=== PATIENT | female | born 1980 | race Caucasian/White ===

== ENCOUNTER 2017-05-25 12:04 | Observation (INO) | payer MEDICAID, OTHER ==
[~2017-05-25] VITALS: Ht 180.3 cm; Wt 161.0 kg
[2017-05-25 13:42] LABS: BASOPHILS % (AUTO) 0.4 % (0.0-5.0); EOSINOPHILS % (AUTO) 2.5 % (0.0-8.0); HEMATOCRIT 34.1 % (36-48); LYMPHOCYTES % (AUTO) 16.3 % (21.0-51.0); MEAN CORPUSCULAR HEMOGLOBIN 30.6 pg (27.0-33.0); MEAN CORPUSCULAR HGB CONC 36.3 g/dL (32.0-36.0); MEAN CORPUSCULAR VOLUME 84.2 fL (79-99); MONOCYTES % (AUTO) 6.8 % (3.0-13.0); PLATELET COUNT (AUTO) 156 K/uL (130-400); RED BLOOD CELL COUNT(AUTO) 4.04 MIL/uL (4.00-5.50); RED CELL DISTRIBUTION WIDTH 14.6 % (11.0-15.5); WHITE BLOOD COUNT (AUTO) 8.5 K/uL (4.8-10.8)
[2017-05-25 13:44] LABS: APPEARANCE,URINE Clear (CLEAR); BILIRUBIN,URINE Moderate (NEGATIVE); COLOR,URINE Orange (YELLOW); GLUCOSE, URINE (UA) Negative (NEGATIVE); KETONES,URINE Negative (NEGATIVE); LEUKOCYTE ESTERASE ,URINE Small (NEGATIVE); NITRATE,URINE Positive (NEGATIVE); OCCULT BLOOD,URINE Negative (NEGATIVE); PROTEIN,URINE Trace (NEGATIVE)
[2017-05-25 13:51] LABS: CREATININE 0.6 mg/dL (0.5-1.5); POTASSIUM 3.5 mmol/L (3.5-5.1)
[2017-05-25 13:55] LABS: ALBUMIN 2.8 g/dL (3.5-5.0); BILIRUBIN,TOTAL 0.4 mg/dL (0.2-1.0)
[2017-05-25 14:00] LABS: BACTERIA,URINE Moderate /HPF (None Seen); RBC,URINE 0-1 /HPF (0-1)
[2017-05-25 16:06] VITALS: BP 147/86
[2017-05-25] MEDS ORDERED: CEFAZOLIN 2GM / 50 ML 50 ML IV SCH (17:00)
[2017-05-25 18:20] VITALS: BP 138/75
[2017-05-25] MEDS: ACETAMINOPHEN-CODEINE 300/30MG TAB PO PRN (20:24)
[2017-05-25] MEDS: CEFAZOLIN SODIUM 1 GM VIAL IVP SCH (20:25)
[2017-05-25 20:44] VITALS: BP 123/66
[2017-05-25 23:57] VITALS: BP 128/70
[2017-05-26] MEDS: DEXTROSE 5%-LACTATED RINGERS 1,000 ML IV PRN ×4 (01:12→20:36)
[2017-05-26 04:15] VITALS: BP 124/57
[2017-05-26] MEDS: CEFAZOLIN SODIUM 1 GM VIAL IVP SCH ×3 (04:20→20:30)
[2017-05-26] MEDS: ACETAMINOPHEN-CODEINE 300/30MG TAB PO PRN (06:13)
[2017-05-26 07:34] VITALS: BP 114/66
[2017-05-26 11:11] VITALS: BP 113/70
[2017-05-26 15:24] VITALS: BP 121/65
[2017-05-26 19:51] VITALS: BP 132/84
[2017-05-27] VITALS: BP 132/70
[2017-05-27 04:00] VITALS: BP 99/49
[2017-05-27] MEDS: CEFAZOLIN SODIUM 1 GM VIAL IVP SCH ×2 (04:23→11:14)
[2017-05-27] MEDS: DEXTROSE 5%-LACTATED RINGERS 1,000 ML IV PRN (04:36)
[2017-05-27 07:37] VITALS: BP 108/63
[2017-05-27] MEDS ORDERED: NITR100C4 PO (11:05)
[2017-05-27] MEDS ORDERED: PHEN-935 PO (11:05)
[2017-05-27 11:08] VITALS: BP 114/66
== END 2017-05-27 12:00 | disposition home or self-care (01) ==
LOC: EDH 12:04 → LDH 12:05 → WSH 18:22
PROVIDERS: ADMIT Obstetrics & Gynecology; ATTEND Obstetrics & Gynecology
DX: O23.42 Unspecified infection of urinary tract in pregnancy, second trimester (principal); Z3A.22 22 weeks gestation of pregnancy
CPT/HCPCS: 36415; 80053; 81001; 85025; 87088; 96361 ×2; 96374; 96376 ×2; 99285; A4218 ×2; G0378 ×48; J0690 ×7; 96360

== ENCOUNTER 2017-09-24 13:01 | Observation (INO) | payer OTHER ==
[~2017-09-24 13:01] MED LIST: NITR100C4 PO; PHEN-935 PO
[2017-09-24 13:41] LABS: APPEARANCE,URINE Cloudy (CLEAR); BILIRUBIN,URINE Negative (NEGATIVE); COLOR,URINE Dark Yellow (YELLOW); GLUCOSE, URINE (UA) Negative (NEGATIVE); KETONES,URINE Trace mg/dL (NEGATIVE); LEUKOCYTE ESTERASE ,URINE Trace (NEGATIVE); NITRATE,URINE Negative (NEGATIVE); OCCULT BLOOD,URINE Negative (NEGATIVE); PROTEIN,URINE Trace (NEGATIVE)
[2017-09-24 14:03] LABS: BACTERIA,URINE Few /HPF (None Seen); MUCUS,URINE Many LPF (None Seen); RBC,URINE None Seen /HPF (0-1); WBC,URINE 0-1 /HPF (0-1)
[2017-09-24 14:10] VITALS: BP 136/72
[2017-09-24 14:24] LABS: BASOPHILS % (AUTO) 0.3 % (0.0-5.0); EOSINOPHILS % (AUTO) 1.4 % (0.0-8.0); HEMATOCRIT 33.1 % (36-48); LYMPHOCYTES % (AUTO) 15.4 % (21.0-51.0); MEAN CORPUSCULAR HEMOGLOBIN 30.4 pg (27.0-33.0); MEAN CORPUSCULAR HGB CONC 35.1 g/dL (32.0-36.0); MEAN CORPUSCULAR VOLUME 86.5 fL (79-99); MONOCYTES % (AUTO) 5.7 % (3.0-13.0); NEUTROPHILS % (AUTO) 77.2 % (40.0-77.0); NUCLEATED RED BLOOD CELLS 0.1 % (0.0-0.19); PLATELET COUNT (AUTO) 145 K/uL (130-400); RED BLOOD CELL COUNT(AUTO) 3.83 MIL/uL (4.00-5.50); RED CELL DISTRIBUTION WIDTH 13.8 % (11.0-15.5); WHITE BLOOD COUNT (AUTO) 8.1 K/uL (4.8-10.8)
[2017-09-24 14:43] LABS: CREATININE 0.8 mg/dL (0.5-1.5); INR 0.93 (0.85-1.15); PARTIAL THROMBOPLASTIN TIME 26.1 SEC (26.3-35.5); POTASSIUM 3.7 mmol/L (3.5-5.1); PROTHROMBIN TIME 9.8 SEC (9.6-11.6)
[2017-09-24 14:47] LABS: ALBUMIN 2.2 g/dL (3.5-5.0); BILIRUBIN,TOTAL 0.4 mg/dL (0.2-1.0); TOTAL PROTEIN, SERUM 6.2 g/dL (6.0-8.3); URIC ACID 5.6 mg/dL (2.6-7.2)
== END 2017-09-24 15:20 | disposition home or self-care (01) ==
LOC: LDH 13:01
PROVIDERS: ADMIT Obstetrics & Gynecology; ATTEND Obstetrics & Gynecology
DX: O26.893 Other specified pregnancy related conditions, third trimester (principal); M54.9 Dorsalgia, unspecified; Z90.49 Acquired absence of other specified parts of digestive tract; Z3A.36 36 weeks gestation of pregnancy
CPT/HCPCS: 36415; 80053; 81001; 84550; 85025; 85384; 85610; 85730; G0378 ×3

== ENCOUNTER 2017-10-01 12:45 | Inpatient (IN) | payer OTHER ==
[~2017-10-01] VITALS: Ht 180.3 cm; Wt 160.1 kg
[2017-10-01 11:38] LABS: HEMATOCRIT 35.1 % (36-48); MEAN CORPUSCULAR HEMOGLOBIN 30.7 pg (27.0-33.0); MEAN CORPUSCULAR HGB CONC 35.4 g/dL (32.0-36.0); MEAN CORPUSCULAR VOLUME 86.5 fL (79-99); PLATELET COUNT (AUTO) 152 K/uL (130-400); RED BLOOD CELL COUNT(AUTO) 4.06 MIL/uL (4.00-5.50); RED CELL DISTRIBUTION WIDTH 13.6 % (11.0-15.5); WHITE BLOOD COUNT (AUTO) 9.1 K/uL (4.8-10.8)
[2017-10-02 07:36] LABS: HEPATITIS Bs ANTIGEN SCREEN P Negative (Negative)
[2017-10-02] MEDS ORDERED: CEFAZOLIN SODIUM 1 GM VIAL ONE (10:15)
[2017-10-02] MEDS ORDERED: CALDOLOR 800MG+NS 250ML 250 ML IV ONE (10:15)
[2017-10-02] MEDS ORDERED: CEFAZOLIN SODIUM 1 GM VIAL IVP PRN (11:15)
[2017-10-02] MEDS ORDERED: CALDOLOR 800MG+NS 250ML 250 ML IV PRN (11:15)
[2017-10-02] MEDS ORDERED: LACTATED RINGERS 1000ML 1,000 ML IV SCH (11:15)
[2017-10-02] MEDS ORDERED: FENTANYL CITRATE PF 50 MCG/1 ML 2ML VIAL ONE (11:56)
[2017-10-02] MEDS ORDERED: DURAMORPH PF1 MG/ML 10ML AMP IV ONE (11:56)
[2017-10-02] MEDS ORDERED: SENSORCAINE/DEXT/PF 0.75% 2ML AMP IJ ONE (11:58)
[2017-10-02] MEDS ORDERED: CEFAZOLIN SODIUM 1 GM VIAL IVP ONE (12:10)
[2017-10-02] MEDS ORDERED: OXYTOCIN 10 USP UNITS/ML ONE ×3 (12:37→18:15)
[2017-10-02] MEDS ORDERED: MIDAZOLAM HCL 1 MG/ML 2ML VIAL ONE (12:54)
[2017-10-02] MEDS ORDERED: DEXAMETHASONE SOD PHOSPHATE 10MG/ML 1ML VIAL ONE (13:01)
[2017-10-02] MEDS ORDERED: LIDOCAINE HCL 2% JELLY 5 ML ONE (13:01)
[2017-10-02] MEDS ORDERED: LIDOCAINE HCL-MPF 1% 2ML VIAL ONE (13:01)
[2017-10-02] MEDS ORDERED: LIDOCAINE PF 2% 5ML ABBOJECT ONE (13:01)
[2017-10-02] MEDS ORDERED: ONDANSETRON HCL 4 MG/2 ML VIAL ONE ×2 (13:01→13:42)
[2017-10-02] MEDS ORDERED: DEXTROSE 5%-LACTATED RINGERS 1,000 ML IV PRN (13:17)
[2017-10-02] MEDS ORDERED: SODIUM CHLORIDE 0.9% 10 ML VIAL IVP PRN (13:30)
[2017-10-02] MEDS ORDERED: DEXTROSE 5 %-0.45 % NACL 1,000 ML IV PRN (13:30)
[2017-10-02] MEDS ORDERED: PROMETHAZINE HCL 25 MG/ML 1ML AMPULE IM PRN ×2 (13:30→18:15)
[2017-10-02] MEDS ORDERED: MEPERIDINE-PF 75 MG/ML SYG IM PRN (13:30)
[2017-10-02 15:05] VITALS: BP 129/78
[2017-10-02] MEDS ORDERED: NALOXONE HCL 0.4 MG/1 ML ML IVP PRN ×2 (18:15)
[2017-10-02] MEDS ORDERED: HYDROCODONE/ACETAMINOPHEN 5/325 MG TAB PO PRN ×2 (18:15)
[2017-10-02] MEDS ORDERED: ONDANSETRON HCL 4 MG/2 ML 8 MG in SODIUM CHLORIDE 0.9% 50 ML IVP NR (18:15)
[2017-10-02] MEDS ORDERED: ONDANSETRON HCL 4 MG/2 ML VIAL IVP PRN ×2 (18:15)
[2017-10-02] MEDS ORDERED: METOCLOPRAMIDE 10 MG/2 ML VIAL IVP PRN (18:15)
[2017-10-02] MEDS ORDERED: MORPHINE SULFATE 2 MG/ML 1ML SYG IVP PRN (18:15)
[2017-10-02] MEDS ORDERED: EPHEDRINE SULFATE 50 MG/ML AMPULE IVP PRN (18:15)
[2017-10-02] MEDS ORDERED: DiphenhydrAMINE HCL 50 MG/ML VIAL IVP PRN (18:15)
[2017-10-02 19:37] VITALS: BP 126/71
[2017-10-02] MEDS: CALDOLOR 800MG+NS 250ML 250 ML IV SCH (21:12)
[2017-10-03] VITALS (7 sets, daily range): BP systolic 107–131; BP diastolic 55–76
[2017-10-03] MEDS: CALDOLOR 800MG+NS 250ML 250 ML IV SCH (05:07)
[2017-10-03 07:04] LABS: HEMATOCRIT 28.8 % (36-48); MEAN CORPUSCULAR HEMOGLOBIN 30.6 pg (27.0-33.0); MEAN CORPUSCULAR HGB CONC 35.1 g/dL (32.0-36.0); MEAN CORPUSCULAR VOLUME 87.4 fL (79-99); PLATELET COUNT (AUTO) 108 K/uL (130-400); RED CELL DISTRIBUTION WIDTH 13.8 % (11.0-15.5); WHITE BLOOD COUNT (AUTO) 7.9 K/uL (4.8-10.8)
[2017-10-03] MEDS ORDERED: BISACODYL 10 MG SUPP.RECT RC PRN (08:45)
[2017-10-03] MEDS: DIPH,PERTUSS(ACELL),TET VAC/PF 0.5 ML VIAL IM SCH (08:45)
[2017-10-03] MEDS ORDERED: DIPHENHYDRAMINE HCL 25 MG CAPSULE PO PRN (08:45)
[2017-10-03] MEDS ORDERED: ACETAMINOPHEN EXTRA STRENGTH 500 MG TABLET PO PRN (08:45)
[2017-10-03] MEDS ORDERED: HYDROCODONE/ACETAMINOPHEN 5/325 MG TAB PO PRN (08:45)
[2017-10-03] MEDS: DOCUSATE SODIUM 100 MG CAP PO SCH ×2 (09:12→21:42)
[2017-10-03] MEDS: ACETAMINOPHEN-CODEINE 300/30MG TAB PO PRN ×2 (09:13→15:39)
[2017-10-03] MEDS: SIMETHICONE 80 MG TAB.CHEW PO PRN ×4 (09:14→21:42)
[2017-10-03] MEDS: IBUPROFEN 800 MG TAB PO SCH ×2 (14:00→21:42)
[2017-10-04] MEDS: ACETAMINOPHEN-CODEINE 300/30MG TAB PO PRN ×2 (04:50→09:05)
[2017-10-04] MEDS: IBUPROFEN 800 MG TAB PO SCH ×2 (05:50→13:18)
[2017-10-04 07:39] VITALS: BP 120/52
[2017-10-04] MEDS: DIPH,PERTUSS(ACELL),TET VAC/PF 0.5 ML VIAL IM SCH (08:45)
[2017-10-04] MEDS: SIMETHICONE 80 MG TAB.CHEW PO PRN ×2 (09:04→13:17)
[2017-10-04] MEDS: DOCUSATE SODIUM 100 MG CAP PO SCH (09:04)
[2017-10-04 11:39] VITALS: BP 136/76
== END 2017-10-04 15:10 | disposition home or self-care (01) | DRG 766 ==
LOC: EDSTATUS 12:45 → LDH 10-02 09:13 → WSH 10-02 15:05
PROVIDERS: ADMIT Obstetrics & Gynecology; ATTEND Obstetrics & Gynecology
PROC: 0UB70ZZ Excision of Bilateral Fallopian Tubes, Open Approach (ICD-10-PCS; 2017-10-02)
PROC: 10D00Z1 Extraction of Products of Conception, Low, Open Approach (ICD-10-PCS; principal; 2017-10-02 12:00)
DX: O34.211 Maternal care for low transverse scar from previous cesarean delivery (principal); O24.420 Gestational diabetes mellitus in childbirth, diet controlled; O99.214 Obesity complicating childbirth; E66.01 Morbid (severe) obesity due to excess calories; M54.30 Sciatica, unspecified side; O99.89 Other specified diseases and conditions complicating pregnancy, childbirth and the puerperium; Z30.2 Encounter for sterilization; Z37.0 Single live birth; Z3A.38 38 weeks gestation of pregnancy; Z28.21 Immunization not carried out because of patient refusal; Z90.49 Acquired absence of other specified parts of digestive tract
CPT/HCPCS: 36415; 59510; 85027; 86592; 86850; 86900; 86901; 87340; 88302; A4344; A4450; A4606; J0690; J1100; J1741; J2001; J2250; J2274; J2405; J2590; J3010; J3490; J7120

== ENCOUNTER 2018-01-15 12:16 | Emergency (ER) | payer OTHER ==
[2018-01-15 12:46] LABS: APPEARANCE,URINE Clear (CLEAR); BILIRUBIN,URINE Negative (NEGATIVE); COLOR,URINE Yellow (YELLOW); GLUCOSE, URINE (UA) Negative (NEGATIVE); HCG,QUAL RESULT NEGATIVE (NEGATIVE); KETONES,URINE Negative (NEGATIVE); LEUKOCYTE ESTERASE ,URINE Negative (NEGATIVE); NITRATE,URINE Negative (NEGATIVE); OCCULT BLOOD,URINE Negative (NEGATIVE); PH,URINE 5.5 (5.0-8.0); PROTEIN,URINE Negative (NEGATIVE); UROBILINOGEN,URINE 0.2 mg/dL (0.2-1.0)
[2018-01-15 13:07] LABS: BASOPHILS % (AUTO) 0.6 % (0.0-5.0); EOSINOPHILS % (AUTO) 2.6 % (0.0-8.0); LYMPHOCYTES % (AUTO) 18.9 % (21.0-51.0); MEAN CORPUSCULAR HEMOGLOBIN 27.8 pg (27.0-33.0); MEAN CORPUSCULAR HGB CONC 33.6 g/dL (32.0-36.0); MEAN CORPUSCULAR VOLUME 82.7 fL (79-99); MONOCYTES % (AUTO) 8.6 % (3.0-13.0); NEUTROPHILS % (AUTO) 69.3 % (40.0-77.0); PLATELET COUNT (AUTO) 182 K/uL (130-400); RED BLOOD CELL COUNT(AUTO) 4.47 MIL/uL (4.00-5.50); WHITE BLOOD COUNT (AUTO) 8.5 K/uL (4.8-10.8)
[2018-01-15 13:14] LABS: CREATININE 0.8 mg/dL (0.5-1.5); POTASSIUM 4.1 mmol/L (3.5-5.1)
[2018-01-15 13:19] LABS: ALBUMIN 3.4 g/dL (3.5-5.0); BILIRUBIN,TOTAL 0.4 mg/dL (0.2-1.0); TOTAL PROTEIN, SERUM 7.9 g/dL (6.0-8.3)
[2018-01-15] MEDS ORDERED: KETOROLAC TROMETHAMINE 30MG/ML ONE (16:53)
== END 2018-01-15 17:09 | disposition home or self-care (01) ==
LOC: EDH 12:16
DX: N83.292 Other ovarian cyst, left side (principal); Z98.51 Tubal ligation status; Z90.49 Acquired absence of other specified parts of digestive tract; Z98.890 Other specified postprocedural states
CPT/HCPCS: 36415; 74176; 76856; 80053; 81003; 81025; 85025; 96374; 99285; J1885

== ENCOUNTER → 2018-03-13 | Outpatient (CLI) | payer OTHER | END | disposition home or self-care (01) | LOC: RAH 11:07 | PROVIDERS: ATTEND Physical Medicine & Rehabilitation | DX: M99.04 Segmental and somatic dysfunction of sacral region (principal); M99.02 Segmental and somatic dysfunction of thoracic region | CPT/HCPCS: 72110 ==

== ENCOUNTER 2019-05-29 00:26 | Emergency (ER) | payer OTHER ==
[2019-05-29 00:54] LABS: APPEARANCE,URINE Clear (CLEAR); BILIRUBIN,URINE Negative (NEGATIVE); COLOR,URINE Yellow (YELLOW); GLUCOSE, URINE (UA) Negative (NEGATIVE); KETONES,URINE Negative (NEGATIVE); LEUKOCYTE ESTERASE ,URINE Negative (NEGATIVE); NITRATE,URINE Negative (NEGATIVE); OCCULT BLOOD,URINE Large (NEGATIVE); PH,URINE 5.5 (5.0-8.0); PROTEIN,URINE Negative (NEGATIVE); UROBILINOGEN,URINE 0.2 mg/dL (0.2-1.0)
[2019-05-29 01:11] LABS: BACTERIA,URINE Few /HPF (None Seen); RBC,URINE 51-100 /HPF (0-1); WBC,URINE 0-1 /HPF (0-1)
[2019-05-29 01:21] LABS: BASOPHILS % (AUTO) 0.4 % (0.0-5.0); HEMATOCRIT 34.4 % (36-48); LYMPHOCYTES % (AUTO) 24.6 % (21.0-51.0); MEAN CORPUSCULAR HGB CONC 33.1 g/dL (32.0-36.0); MEAN CORPUSCULAR VOLUME 78.5 fL (79-99); MONOCYTES % (AUTO) 7.1 % (3.0-13.0); NEUTROPHILS % (AUTO) 63.8 % (40.0-77.0); PLATELET COUNT (AUTO) 192 K/uL (130-400); RED BLOOD CELL COUNT(AUTO) 4.38 MIL/uL (4.00-5.50); RED CELL DISTRIBUTION WIDTH 13.7 % (11.0-15.5); WHITE BLOOD COUNT (AUTO) 7.8 K/uL (4.8-10.8)
[2019-05-29 01:28] LABS: POTASSIUM 3.8 mmol/L (3.5-5.1)
[2019-05-29 01:33] LABS: ALBUMIN 3.1 g/dL (3.5-5.0); BILIRUBIN,TOTAL 0.3 mg/dL (0.2-1.0); TOTAL PROTEIN, SERUM 7.1 g/dL (6.0-8.3)
[2019-05-29] MEDS ORDERED: ONDANSETRON ODT 4 MG TAB ONE (02:55)
[2019-05-29] MEDS ORDERED: CYCLOBENZAPRINE HCL 10 MG TABLET ONE (02:55)
[2019-05-29] MEDS ORDERED: HYDROCODONE/ACETAMINOPHEN 10/325 MG TAB ONE (02:56)
== END 2019-05-29 03:47 | disposition home or self-care (01) ==
LOC: EDH 00:26
DX: R10.9 Unspecified abdominal pain (principal); Z90.49 Acquired absence of other specified parts of digestive tract; Z98.890 Other specified postprocedural states
CPT/HCPCS: 36415; 74176; 80053; 81001; 81025; 85025

== ENCOUNTER 2022-03-06 21:19 | Emergency (ER) | payer OTHER ==
[~2022-03-06] VITALS: Ht 180.3 cm; Wt 162.4 kg
[~2022-03-06 21:19] MED LIST changes: +AUGMENTIN PO; -NITR100C4 PO; -PHEN-935 PO
[2022-03-06 21:57] LABS: BASOPHILS % (AUTO) 0.5 % (0.0-5.0); EOSINOPHILS % (AUTO) 2.9 % (0.0-8.0); HEMATOCRIT 31.3 % (36-48); LYMPHOCYTES % (AUTO) 15.6 % (21.0-51.0); MEAN CORPUSCULAR HEMOGLOBIN 24.6 pg (27.0-33.0); MEAN CORPUSCULAR HGB CONC 32.9 g/dL (32.0-36.0); MEAN CORPUSCULAR VOLUME 74.7 fL (79-99); NEUTROPHILS % (AUTO) 72.8 % (40.0-77.0); PLATELET COUNT (AUTO) 179 K/uL (130-400); RED BLOOD CELL COUNT(AUTO) 4.19 MIL/uL (4.00-5.50); RED CELL DISTRIBUTION WIDTH 14.6 % (11.0-15.5); WHITE BLOOD COUNT (AUTO) 6.5 K/uL (4.8-10.8)
[2022-03-06] MEDS ORDERED: MORPHINE 4 MG SYG IVP ONE (22:00)
[2022-03-06] MEDS ORDERED: ONDANSETRON 4MG INJ IVP ONE (22:00)
[2022-03-06] MEDS ORDERED: 0.9%NACL 1000ML 1,000 ML IV ONE (22:00)
[2022-03-06 22:14] LABS: CREATININE 0.9 mg/dL (0.5-1.5); POTASSIUM 3.6 mmol/L (3.5-5.1)
[2022-03-06 22:19] LABS: ALBUMIN 3.3 g/dL (3.5-5.0); TOTAL PROTEIN, SERUM 7.4 g/dL (6.0-8.3)
[2022-03-07] MEDS ORDERED: IOHEXOL 350 MG/ML 100ML INFUS..BTL IV ONE (00:17)
[2022-03-07 00:20] VITALS: BP 154/90
[2022-03-07] MEDS ORDERED: HYOS0.124 SL (01:27)
== END 2022-03-07 01:34 | disposition home or self-care (01) ==
LOC: EDH 21:19
DX: K52.9 Noninfective gastroenteritis and colitis, unspecified (principal); Z90.49 Acquired absence of other specified parts of digestive tract
CPT/HCPCS: 99285; 74177; 96374; 96361; 96375; 80053; 84703; 83690; 85025; 36415; J7030; J2405; J2270; Q9967

== ENCOUNTER 2022-06-02 06:21 | Day surgery (SDC) | payer OTHER ==
[2022-05-31 10:01] LABS: BASOPHILS % (AUTO) 0.5 % (0.0-5.0); EOSINOPHILS % (AUTO) 2.9 % (0.0-8.0); HEMATOCRIT 33.2 % (36-48); LYMPHOCYTES % (AUTO) 20.1 % (21.0-51.0); MEAN CORPUSCULAR HEMOGLOBIN 23.4 pg (27.0-33.0); MEAN CORPUSCULAR HGB CONC 30.7 g/dL (32.0-36.0); MEAN CORPUSCULAR VOLUME 76.1 fL (79-99); MONOCYTES % (AUTO) 6.8 % (3.0-13.0); NEUTROPHILS % (AUTO) 69.3 % (40.0-77.0); PLATELET COUNT (AUTO) 233 K/uL (130-400); RED BLOOD CELL COUNT(AUTO) 4.36 MIL/uL (4.00-5.50); RED CELL DISTRIBUTION WIDTH 14.6 % (11.0-15.5); WHITE BLOOD COUNT (AUTO) 7.3 K/uL (4.8-10.8)
[2022-05-31 10:05] VITALS: BP 163/72
[~2022-06-02] VITALS: Ht 180.3 cm; Wt 116.4 kg
[2022-06-02] VITALS (21 sets, daily range): BP systolic 121–174; BP diastolic 68–94
[~2022-06-02 06:21] MED LIST changes: -AUGMENTIN PO; +CEFAZOLIN SODIUM 1 GM VIAL IVPB SCH; +LACTATED RINGERS 1000ML 1,000 ML IV SCH; +MULT-1367 PO
[2022-06-02] MEDS ORDERED: MIDAZOLAM HCL 1 MG/ML 2ML VIAL ONE (08:36)
[2022-06-02] MEDS ORDERED: FENTANYL CITRATE PF 50 MCG/1 ML 5ML AMP IV ONE (08:37)
[2022-06-02] MEDS ORDERED: PROPOFOL 10 MG/ML 20ML VIAL IV ONE (08:37)
[2022-06-02] MEDS ORDERED: ONDANSETRON 4MG INJ ONE ×2 (08:43→11:29)
[2022-06-02] MEDS ORDERED: CEFAZOLIN SODIUM 3 GM VIAL IV ONE (08:50)
[2022-06-02] MEDS ORDERED: SUCCINYLCHOLINE 200MG/10ML SYR ONE (08:52)
[2022-06-02] MEDS ORDERED: ROCURONIUM 10MG/1ML SYR 10 MG/ML ML ONE (08:52)
[2022-06-02] MEDS ORDERED: DEXAMETHASONE SOD PHOSPHATE 10MG/ML 1ML VIAL ONE (09:30)
[2022-06-02] MEDS ORDERED: FENTANYL CITRATE PF 50 MCG/1 ML 2ML VIAL ONE (09:37)
[2022-06-02] MEDS ORDERED: HYDRALAZINE 20MG/ML VIAL ONE (10:09)
[2022-06-02] MEDS ORDERED: KETOROLAC 30MG VIAL (30MG/ML) ONE (10:21)
[2022-06-02] MEDS ORDERED: MEPERIDINE-PF 25 MG/ML SYG ONE ×2 (10:30→10:54)
== END 2022-06-02 12:30 | disposition home or self-care (01) ==
LOC: DAH 06:21
PROVIDERS: ATTEND Obstetrics & Gynecology
DX: N92.0 Excessive and frequent menstruation with regular cycle (principal); Z20.822 Contact with and (suspected) exposure to COVID-19; N81.2 Incomplete uterovaginal prolapse; Z90.49 Acquired absence of other specified parts of digestive tract; Z98.891 History of uterine scar from previous surgery; Z98.51 Tubal ligation status
CPT/HCPCS: 84703; 85025; 86850; 86900; 86901; 87426; 36415; 58563; A4663; A4351; A4606; A4355; J0690 ×2; J7120; J3010 ×2; J0330; J1100; J0360; J2250; J2704; J2405 ×2; J1885; J2175 ×2; A4649; A4930; A4215; A4223; A4222; A4221; J7030; A4600; A4510